=== PATIENT | male | born 1990 | race Caucasian/White ===

== ENCOUNTER 2025-09-16 11:23 | Emergency (ER) | payer OTHER, SELFPAY ==
[2025-09-16 11:23] VITALS: BMI 36.5
[2025-09-16 11:51] VITALS: BP 148/90; PULSE 108; RESP 18; TEMP 37; O2SAT 97
--- NOTE | 2025-09-16 12:01 | XR_ITS ---
Examination: CT abdomen and pelvis without contrast. Coronal 3-D reconstructions. Sagittal 2-D reconstructions. Date and time of exam: September 16, 2025, 1207 hours INDICATION: Onset left-sided flank pain today CTDI: vol (mGy): 9.15 DLP: (mGycm): 606 Technique: Axial images of the abdomen have been obtained, 3 mm slice thickness Intravenous contrast material has not been administered. Low dose protocols were performed. One or more of the following dose reduction techniques were used; automated exposure control, adjustment of the mA and/or KV according to patient size, use of iterative reconstruction technique. Findings: No focal liver or splenic lesion No gallstones No pancreatic or adrenal mass No renal or ureteral calculi, no hydronephrosis Aorta normal size Normal appendix No bowel obstruction No diverticulitis Normal seminal vesicles Normal prostate Normal urinary bladder Fat-containing inguinal hernias Prominent osteopenia IMPRESSION: No renal or ureteral calculi, no hydronephrosis Normal appendix Normal urinary bladder
--- NOTE | 2025-09-16 12:02 | PD.EDRME ---
Rapid Medical Screening Exam [facility] Arrival date/time: 09/16/25 11:23 34-year-old male with no known medical history presents to the emergency room with a chief complaint of vomiting blood x 1 day. Patient states he drinks 2 tall cans of alcohol daily I have greeted and performed a focused initial assessment of this patient. A comprehensive ED assessment and evaluation of the patient, analysis of all test results, and completion of the medical decision making process will be conducted by additional ED providers. Chief Complaint: Abdominal Pain Time Seen by Provider: 09/16/25 11:46 Vital signs: Vital Signs Temperature 98.6 F 09/16/25 11:51 Pulse Rate 108 H 09/16/25 11:51 Respiratory Rate 18 09/16/25 11:51 Blood Pressure 148/90 H 09/16/25 11:51 Pulse Oximetry (%) 97 09/16/25 11:51 Oxygen Delivery Method Room Air 09/16/25 11:51 Vital signs reviewed by provider: Yes Exam: Soft nontender abdomen Clear bilateral lung sounds Clinical Impression: Upper GI bleed/gastroenteritis/cirrhosis
[2025-09-16 13:15] LABS: Collection Type, Urine Clean Catch; Squamous Epithelial Cell,Urine 0 /hpf (0-5)
[2025-09-16 13:20] LABS: Basophils # (Auto) 0.1 Thou/mm3 (0.0-0.2); Basophils % (Auto) 1 % (0-2.5); Eosinophils # (Auto) 0.1 Thou/mm3 (0.0-0.5); Eosinophils % (Auto) 0 % (0-10); Hematocrit 40.9 % (41.0-53.0); Hemoglobin 14.5 g/dL (13.5-16.0); Immature Granulocytes Auto 0.04 Thou/mm3 (0.00-0.00); Lymphocytes # (Auto) 0.6 Thou/mm3 (1.0-4.8); Lymphocytes % (Auto) 5 % (10-50); Mean Corpuscular HGB Conc 35.5 g/dl (31.0-37.0); Mean Corpuscular Hemoglobin 33.6 pg (25.0-35.0); Mean Corpuscular Volume 95 fL (80-100); Monocytes # (Auto) 0.9 Thou/mm3 (0.0-0.8); Monocytes % (Auto) 8 % (0-12); Neutrophils # (Auto) 10.0 Thou/mm3 (1.8-7.7); Neutrophils % (Auto) 86 % (37-80); Nucleated Red Blood Cell # 0.00 Thou/mm3 (0.00-0.00); Nucleated Red Blood Cell % 0 /100 WBC (0); Platelet Count 184 Thou/mm3 (140-440); RDW Standard Deviation 38.8 fL (35.1-43.9); Red Blood Count 4.31 Miln/mm3 (4.50-5.90); White Blood Count 11.7 Thou/mm3 (3.8-10.6)
[2025-09-16 13:28] LABS: Amphetamine/Methamp Scrn,U Negative (Negative); Barbiturate Screen,Urine Negative (Negative); Benzodiazepines Screen,Urine Negative (Negative); Benzoylecgonine Screen, Ur Negative (Negative); Fentanyl Screen,Urine Negative (Negative); Opiate Screen,Urine Negative (Negative); THC Screen,Urine Negative (Negative)
[2025-09-16 13:37] LABS: INR 1.2 (0.9-1.3); Partial Thromboplastin Time 28.2 Seconds (22.0-36.0); Prothrombin Time 12.4 Seconds (9.0-12.2)
[2025-09-16 13:44] LABS: Bilirubin,Urine Negative (Negative); Blood,Urine Negative (Negative); Clarity,Urine Clear (Clear/Hazy); Color,Urine Yellow (Lt Yel-Yel); Glucose, Urine Trace (Negative); Ketones,Urine 1+ (Negative); Leukocyte Esterase,Urine Negative (Negative); Nitrite,Urine Negative (Negative); PH,Urine 6.5 (5.0-7.0); Protein,Urine Trace (Neg - Trace); RBC,Urine 6 /hpf (0-3); Specific Gravity,Urine 1.028 (1.001-1.035); Urobilinogen,Urine Negative mg/dL (0.0-1.0); WBC,Urine 1 /hpf (0-5)
[2025-09-16 14:06] LABS: Alanine Aminotransferase 63 U/L (10-49); Albumin, Serum 5.2 gm/dL (3.5-5.0); Albumin/Globulin Ratio 2.1 (1.2-2.2); Alcohol, Blood Medical < 3.0 mg/dL (0-10.0); Alkaline Phosphatase 51 U/L (46-116); Anion Gap 9 (7-16); Aspartate Amino Transferase 61 U/L (0-34); BUN/Creatinine Ratio 12 Ratio (12-20); Bilirubin,Total 1.5 mg/dL (0.3-1.2); Blood Urea Nitrogen 12 mg/dL (9-23); Calcium 9.1 mg/dL (8.3-10.6); Calcium (Corrected) 9.1 mg/dL (8.5-10.1); Carbon Dioxide 29.6 mMol/L (20.0-31.0); Chloride 94 mMol/L (98-107); Creatinine (Component) 1.0 mg/dL (0.6-1.3); Estimated Creatinine Clearance 122.2 mL/min (>60); Globulin 2.5 gm/dL (2.3-3.5); Glucose 110 mg/dL (74-106); Lipase 44 U/L (12-53); Osmolality,Calculated 267 (275-295); Potassium 3.7 mMol/L (3.4-5.1); Sodium 133 mMol/L (136-145); Total Protein 7.7 gm/dL (5.7-8.2); eGFR > 60 See Note
--- NOTE | 2025-09-16 16:58 | EDNOTE_ITS ---
<Statement entered by Rossy Ge MD - 09/16/25 17:06> As co-signing physician, I was present and available for consult prn. I concur with the plan and care as documented by the midlevel provider. ED General RME/HPI General Chief complaint: Abdominal Pain Stated complaint: vomiting blood Time Seen by Provider: 09/16/25 11:46 Arrival date/time: 09/16/25 11:23 CC: Vomiting blood HPI patient states he has vomited blood x 2 today after throwing up denies coughing up blood. Patient admits that he drinks alcohol every day. Patient states he drinks 1-2 tall cans of beer. However the patient is fine hand tremens. When pressed the patient stated his last drink was yesterday afternoon. Patient is awake alert with direct eye contact answering all questions appropriately. Patient denies any regular medicines is seen Dr Salter as his primary care doctor. Denies any abdominal pain low back pain. Denies any black tarry stools. States his vomitus has had speckles of bright red blood on it. The patient is nontoxic-appearing not in any acute distress. RME / HPI RME / HPI narrative: 09/16/25 11:23 34-year-old male with no known medical history presents to the emergency room with a chief complaint of vomiting blood x 1 day. Patient states he drinks 2 tall cans of alcohol daily I have greeted and performed a focused initial assessment of this patient. A comprehensive ED assessment and evaluation of the patient, analysis of all test results, and completion of the medical decision making process will be conducted by additional ED providers. Exam: Soft nontender abdomen Clear bilateral lung sounds Impression: Upper GI bleed/gastroenteritis/cirrhosis Related Data Previous Rx's ?Medication ?Instructions ?Recorded acetaminophen 650 mg 650 mg PO Q8H PRN fever or p ain 01/22/18 tablet,extended release #30 tabs diphenhydramine HCl 25 mg capsule 25 mg PO Q6H PRN sacha h #30 caps 01/22/18 (Benadryl) ibuprofen 600 mg tablet 600 mg PO Q8H PRN fever or p ain 01/22/18 #30 tabs tamsulosin 0.4 mg capsule (Flomax) 0.4 mg PO QDAY #14 caps 05/15/20 acetaminophen 500 mg capsule 1,000 mg (2 x 500 mg) PO TID #30 07/27/23 caps dextromethorphan-guaifenesin 10 10 ml PO Q8H PRN cough #500 mL 07/27/23 mg-100 mg/5 mL oral liquid ibuprofen 600 mg tablet 600 mg PO Q8H PRN fever or p ain 02/21/24 #20 tabs pantoprazole 20 mg tablet,delayed 20 mg PO QDAY #30 ta bs 09/16/25 release (Protonix) sucralfate 1 gram tablet (Carafate) 1 g PO BID #30 tab s 09/16/25 Allergies Allergy/AdvReac Type Severity Reaction Status Date / Time Penicillins Allergy Swelling Verified 09/16/25 11:25 of Lip/Tongue/Throat Review of Systems Review of Systems Narrative Review of Systems: GEN: No fever, no chills, no weight loss EYES: No discharge, no visual changes, no pain HEENT: No ear pain, no congestion, no sore throat PULM: No shortness of breath, no cough, no congestion CV: No chest pain, no dyspnea on exertion, no palpitations GI: No nausea, no vomiting, no diarrhea, no pain, no constipation : No frequency, no urgency, no dysuria MUSC/SKEL: No joint pain, no back pain SKIN: No rash PSYCH: No hallucinations, no depression HEME/LYMPH: No easy bleeding or bruising tendencies NEURO: No weakness, no headache Past Medical History Past Medical History NEUROLOGIC: Negative Neurological Disorders CARDIAC: Positive Hypertension; Negative Cardiac Disorders or Congestive Heart Failure RESPIRATORY: Negative Chronic Obstructive Pulmonary Disease (COPD) GENITOURINARY: Negative Renal Disease ENDOCRINE: Negative Diabetes Mellitus Type 1 or Diabetes Mellitus Type 2 Social History SMOKING STATUS: Never smoker ED Exam Narrative Physical exam: [General: In mild discomfort but not in any acute distress Head normocephalic HEENT: Eyes pupils PERRLA EOMs are intact mouth [place] dry membranes uvula is midline swallow symmetrical phonation is normal all of the substance of HEENT are within acceptable limits Neck is supple nontender no JVD Chest equal chest rise nontender to palpation Respiratory: Clear to auscultation no wheezes crackles or rubs CV: Rate rhythm is regular no murmurs rubs or clicks Abdomen is soft nontender no masses positive bowel sounds all 4 quadrants Back: No CVA tenderness no spinous process tenderness from cervical spine thoracic and lumbar spine Skin: Intact no petechiae rash induration ulceration or crepitus Extremities: Moving all extremity against resistance cap refill less than 2 seconds neurosensory intact Neuro: Awake alert oriented x3 Glascow coma 15 no focal deficits] Course Course Course Narrative: I suspect the patient has esophageal irritation as there is a minimal amount of bleeding and no active vomiting at the time of the exam. Hemoglobin is relatively unremarkable. At this time the patient advised to start on medications including Carafate and Protonix before each meal. Patient advised them to continue avoiding alcohol as he has already been alcohol free for the first 24 hours with only fine hand tremors. Patient also advised to follow-up with his PCP for referral for GI for endoscopy to rule out esophageal or gastric ulcers. Patient is in agreement with this plan. Quality Measures none Orders Category Date Time Status CT abdomen pelvis wo con Stat Exams 09/16/25 12:01 Completed Alcohol, Blood Medical Stat Lab 09/16/25 12:54 Completed CBC Stat Lab 09/16/25 12:54 Completed CMP [Comprehensive Metabolic Panel] Stat Lab 09/16/25 12:54 Completed Drug Screen,Urine Stat Lab 09/16/25 13:02 Completed Lipase Stat Lab 09/16/25 12:54 Completed PT [Prothrombin Time with INR] Stat Lab 09/16/25 12:54 Completed PTT [Partial Thromboplastin Time] Stat Lab 09/16/25 12:54 Completed UA [Urinalysis] Stat Lab 09/16/25 13:06 Completed Urine Culture Stat Lab 09/16/25 13:06 Received Vital Signs Vital signs: Vital Signs Temperature 98.6 F 09/16/25 11:51 Pulse Rate 108 H 09/16/25 11:51 Respiratory Rate 18 09/16/25 11:51 Blood Pressure 148/90 H 09/16/25 11:51 Pulse Oximetry (%) 97 09/16/25 11:51 Oxygen Delivery Method Room Air 09/16/25 11:51 Discharge Plan Plan Patient Disposition: HOME (Self Care) Patient condition on transfer: Stable Prescriptions/Referrals Prescriptions/Med Rec: New sucralfate [Carafate] 1 gram tablet 1 g PO BID Qty: 30 1RF pantoprazole [Protonix] 20 mg tablet,delayed release (DR/EC) 20 mg PO QDAY Qty: 30 1RF No Action acetaminophen 650 mg tablet extended release 650 mg PO Q8H PRN (Reason: fever or pain) Qty: 30 0RF Rx Instructions: swallow whole; do not crush, chew, break, dissolve, cut, or open diphenhydramine HCl [Benadryl] 25 mg capsule 25 mg PO Q6H PRN (Reason: rash) Qty: 30 0RF Rx Instructions: 1-2 tab(s) PO Q6-8 hours prn rash ibuprofen 600 mg tablet 600 mg PO Q8H PRN (Reason: fever or pain) Qty: 30 0RF Rx Instructions: prn pain / fever tamsulosin [Flomax] 0.4 mg capsule 0.4 mg PO QDAY Qty: 14 0RF ibuprofen 600 mg tablet 600 mg PO Q8H PRN (Reason: fever or pain) Qty: 20 0RF dextromethorphan-guaifenesin 10-100 mg/5 mL liquid 10 ml PO Q8H PRN (Reason: cough) Qty: 500 0RF acetaminophen 500 mg capsule 1,000 mg PO TID Qty: 30 0RF Referrals: Dylan Salter MD [Primary Care Provider, Family Practice] - In 1 week Melisa Fernandez MD [Physician, Gastroenterology] - In 1 week Problem List Clinical Impression: Hematemesis Patient/Caregiver Discharge Instructions Other Activity Instructions:: Take the medications as prescribed. You are doing a fantastic job not drinking alcohol. Just take it day by day and avoiding alcohol. Follow-up with your primary care doctor. Request a referral for GI as you need an endoscopy. Stick to a bland diet for the next 2 weeks if possible. If there is a worsening of symptoms in spite of these interventions return to the emergency room for reevaluation. Education Materials: Bleeding Gastrointestinal, ED Diet, [place] (Adult) Print Language: Turkish Stand Alone Forms: Ericka Award Info., Work/School Release, Patient Portal Info Letter HOWARD/ANURADHA Supervising Physician HOWARD/ANURADHA Supervising Physician: Ernst Osorio ENP [facility] Clinical Information Provided by: patient Medical Records reviewed [facility] Meds/Rx considered, not ordered None Labs/Rad/Tests considered, not ordered None Chronic Illness/Social Conditions which may negatively complicate care or outcome(s)-explain: ETOH/drugs/substance abuse EKG EKG not done Labs Labs: interpreted by me Lab(s) Interpretation(s): CBC shows mild leukocytosis of 11.7 H&H of 14.5 and 40.9 respectively platelets at 184. Coags show PT of 12.4 INR 1.2 with a PTT of 28.2 Sodium 133 chloride of 94 no other significant electrolyte imbalances renal impairment. T. bili of 1.5 AST of 61 ALT of 63 alk phos is within acceptable limits. Lipase is 44 Urine shows 1+ ketones but no signs of infection UDS is negative Alcohol level is less than 3. Imaging Imaging interpretation: interpreted by wa Imaging Interpretation(s): CT of the abdomen shows no acute finding requires emergent or immediate intervention.
[2025-09-16 17:00] VITALS: BP 156/96; PULSE 106; RESP 18; TEMP 36.8; O2SAT 94
== END 2025-09-16 17:28 | disposition home or self-care (01) ==
PROVIDERS: Nurse Practitioner Family; Emergency Provider Emergency Medicine; PCP Family Medicine
DX: K92.0 Hematemesis (principal); R10.A2 Flank pain, left side
CPT/HCPCS: 36415; 74176; 80053; 80307; 80320; 81001; 83690; 85025; 85610; 85730; 87086; 99283; G0480

== ENCOUNTER → 2025-09-30 | Outpatient (CLI) | payer OTHER, SELFPAY ==
[2025-09-30 10:39] LABS: Basophils # (Auto) 0.1 Thou/mm3 (0.0-0.2); Basophils % (Auto) 1 % (0-2.5); Eosinophils # (Auto) 0.1 Thou/mm3 (0.0-0.5); Eosinophils % (Auto) 2 % (0-10); Hematocrit 38.6 % (41.0-53.0); Hemoglobin 13.6 g/dL (13.5-16.0); Immature Granulocytes Auto 0.02 Thou/mm3 (0.00-0.00); Lymphocytes # (Auto) 1.6 Thou/mm3 (1.0-4.8); Lymphocytes % (Auto) 26 % (10-50); Mean Corpuscular HGB Conc 35.2 g/dl (31.0-37.0); Mean Corpuscular Hemoglobin 33.3 pg (25.0-35.0); Mean Corpuscular Volume 95 fL (80-100); Monocytes # (Auto) 0.5 Thou/mm3 (0.0-0.8); Monocytes % (Auto) 7 % (0-12); Neutrophils # (Auto) 3.9 Thou/mm3 (1.8-7.7); Neutrophils % (Auto) 63 % (37-80); Nucleated Red Blood Cell # 0.00 Thou/mm3 (0.00-0.00); Nucleated Red Blood Cell % 0 /100 WBC (0); Platelet Count 286 Thou/mm3 (140-440); RDW Standard Deviation 39.6 fL (35.1-43.9); Red Blood Count 4.08 Miln/mm3 (4.50-5.90); White Blood Count 6.2 Thou/mm3 (3.8-10.6)
[2025-09-30 10:59] LABS: Alanine Aminotransferase 29 U/L (10-49); Albumin, Serum 4.6 gm/dL (3.5-5.0); Albumin/Globulin Ratio 2.1 (1.2-2.2); Alkaline Phosphatase 47 U/L (46-116); Anion Gap 10 (7-16); Aspartate Amino Transferase 26 U/L (0-34); BUN/Creatinine Ratio 10 Ratio (12-20); Bilirubin,Total 0.3 mg/dL (0.3-1.2); Blood Urea Nitrogen 10 mg/dL (9-23); Calcium 9.1 mg/dL (8.3-10.6); Calcium (Corrected) 9.1 mg/dL (8.5-10.1); Carbon Dioxide 31.0 mMol/L (20.0-31.0); Cardiac Risk Estimate 1.8 RATIO (4.0-6.7); Chloride 100 mMol/L (98-107); Cholesterol 156 mg/dL (132-200); Creatinine (Component) 1.0 mg/dL (0.6-1.3); Globulin 2.2 gm/dL (2.3-3.5); Glucose 100 mg/dL (74-106); HDL Cholesterol 88 mg/dL (40-60); LDL Cholesterol,Calculated 58 mg/dL (0-130); Lipase 45 U/L (12-53); Osmolality,Calculated 280 (275-295); Potassium 4.0 mMol/L (3.4-5.1); Sodium 141 mMol/L (136-145); Total Protein 6.8 gm/dL (5.7-8.2); Triglycerides 52 mg/dL (30-150); Uric Acid 3.9 mg/dL (3.7-9.2); eGFR > 60 See Note
[2025-09-30 13:03] LABS: Urea Breath Test Negative (Negative)
== END | disposition home or self-care (01) ==
PROVIDERS: PCP Family Medicine; Referring Provider Family Medicine; Visit Provider Family Medicine
DX: Z00.00 Encounter for general adult medical examination without abnormal findings (principal); K92.0 Hematemesis; I10 Essential (primary) hypertension; R94.5 Abnormal results of liver function studies; E79.0 Hyperuricemia without signs of inflammatory arthritis and tophaceous disease; E66.811 Obesity, class 1
CPT/HCPCS: 36415; 80053; 80061; 83013; 83014; 83690; 84550; 85025